=== PATIENT | female | born 1995 | race African-American/Black ===

== ENCOUNTER 2018-11-08 08:03 | Emergency (ER) | payer SELFPAY ==
[2018-11-08 08:11] VITALS: BP 105/67
--- NOTE | 2018-11-08 08:28 | ER Document Report ---
HPI - HPI Patient complains to provider of: right hand pain Time Seen by Provider: 11/08/18 08:24 Onset: Yesterday Onset/Duration: Sudden, Persistent Quality of pain: Achy Severity: Severe Pain Level: 4 Context: Patient presents emergency department with right hand pain. Reports she punched a car door last night. Reports she punches things when she gets mad. Reports pain with movement. No other complaints such as fever vomiting diarrhea. No past medical history of injury to the hand. Patient is right-hand dominant. Associated Symptoms: None Exacerbated by: Movement Relieved by: Denies Similar symptoms previously: No Recently seen / treated by doctor: No - REPRODUCTIVE Reproductive: DENIES: : Past Medical History - General Information source: Patient Last Menstrual Period: september - Social History Smoking Status: Current Every Day Smoker Cigarette use (# per day): Yes Frequency of alcohol use: None Drug Abuse: Marijuana Family History: Reviewed & Not Pertinent Patient has suicidal ideation: No Patient has homicidal ideation: No - Medical History Medical History: Negative Surgical Hx: Negative - Immunizations Immunizations up to date: Yes Vertical Provider Document - CONSTITUTIONAL Agree With Documented VS: Yes Exam Limitations: No Limitations General Appearance: WD/WN, No Apparent Distress - nontoxic looking - INFECTION CONTROL TRAVEL OUTSIDE OF THE [place] IN LAST 30 DAYS: No - HEENT HEENT: Atraumatic, Normocephalic - NECK Neck: Supple - RESPIRATORY Respiratory: No Respiratory Distress - CARDIOVASCULAR Cardiovascular: Regular Rate - MUSCULOSKELETAL/EXTREMETIES Musculoskeletal/Extremeties: MAEW, FROM, Tender - Patient reports right hand dorsally tender to palpation no obvious deformity no swelling no erythema no warmth full range of motion good cap refill good radial pulse. - NEURO Level of Consciousness: Awake, Alert, Appropriate Motor/Sensory: No Motor Deficit - DERM Integumentary: Warm, Dry Course - Re-evaluation Re-evalutation: 11/08/18 09:22 Hand x-ray negative for acute fracture. Patient was instructed to take Tylenol Motrin for the pain ice hand and avoid punching things. She verbalized understanding all instructions Dictation of this chart was performed using voice recognition software; therefore, there may be some unintended grammatical errors. - Vital Signs Vital signs: Temp Pulse Resp BP Pulse Ox 98.4 F 81 105/67 100 11/08/18 08:09 11/08/18 08:09 11/08/18 08:09 11/08/18 08:09 - Diagnostic Test Radiology reviewed: Image reviewed, Reports reviewed - EXAM DESCRIPTION: HAND RIGHT 3 VIEWS COMPLETED DATE/TIME: 11/08/2018 8:30 am REASON FOR STUDY: punched car door COMPARISON: None. EXAM PARAMETERS: NUMBER OF VIEWS: Three views. TECHNIQUE: AP, lateral and oblique radiographic images acquired of the right hand. LIMITATIONS: None. FINDINGS: MINERALIZATION: Normal. BONES: No acute fracture or dislocation. No worrisome bone lesions. JOINTS: No effusions. SOFT TISSUES: No soft tissue swelling. No foreign body. OTHER: No other significant finding. IMPRESSION: No fracture or dislocation of the right hand. Joint spaces are well preserved. Discharge - Discharge Clinical Impression: Right hand pain Condition: Stable Disposition: HOME, SELF-CARE Instructions: Use of Bwbp-Kxr-Qheixat Ibuprofen ([facility]), Ice & Elevation ([facility]) Additional Instructions: *You have been evaluated for right hand pain Your xray was negative for an acute fracture *Rest/Ice/Elevate *Follow up with orthopedics for continued pain within one week *Take tylenol or motrin as indicated for pain *Return to ED for worsening condition, changes, needs Forms: Return to Work
--- NOTE | 2018-11-08 08:47 | RADIOLOGY REPORT (SQ) ---
EXAM DESCRIPTION: HAND RIGHT 3 VIEWS COMPLETED DATE/TIME: 11/08/2018 8:30 am REASON FOR STUDY: punched car door COMPARISON: None. EXAM PARAMETERS: NUMBER OF VIEWS: Three views. TECHNIQUE: AP, lateral and oblique radiographic images acquired of the right hand. LIMITATIONS: None. FINDINGS: MINERALIZATION: Normal. BONES: No acute fracture or dislocation. No worrisome bone lesions. JOINTS: No effusions. SOFT TISSUES: No soft tissue swelling. No foreign body. OTHER: No other significant finding. IMPRESSION: No fracture or dislocation of the right hand. Joint spaces are well preserved. TECHNICAL DOCUMENTATION: JOB ID: [id number] [employer]- All Rights Reserved Reading location - IP/workstation name: [email or web address]
== END 2018-11-08 09:13 | disposition home or self-care (01) ==
LOC: ER 08:03
DX: M79.641 Pain in right hand (principal); W22.8XXA Striking against or struck by other objects, initial encounter; F17.210 Nicotine dependence, cigarettes, uncomplicated
CPT/HCPCS: 99283

== ENCOUNTER 2019-06-12 09:48 | Emergency (ER) | payer SELFPAY ==
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
--- NOTE | 2019-06-12 11:13 | RADIOLOGY REPORT (SQ) ---
EXAM DESCRIPTION: CT HEAD WITHOUT COMPLETED DATE/TIME: 06/12/2019 11:04 am REASON FOR STUDY: trauma COMPARISON: None. TECHNIQUE: Axial images acquired through the brain without intravenous contrast. Images reviewed wi th bone, brain and subdural windows. Additional sagittal and coronal reconstructions were generated. Images stored on PACS. All CT scanners at this facility use dose modulation, iterative reconstruction, and/or weight based d osing when appropriate to reduce radiation dose to as low as reasonably achievable (ALARA). [facility]: Dose Right [facility]: CareDose [facility]: Dose Right [facility]: Teradose 4D [facility]: CabbyGo RADIATION DOSE: CT Rad equipment meets quality standard of care and radiation dose reduction techniq ues were employed. CTDIvol: 53.2 mGy. DLP: 911 mGy-cm. mGy. LIMITATIONS: None. FINDINGS: VENTRICLES: Normal size and contour. CEREBRUM: No masses. No hemorrhage. No midline shift. No evidence for acute infarction. Normal gra y/white matter differentiation. No areas of low density in the white matter. CEREBELLUM: No masses. No hemorrhage. No alteration of density. No evidence for acute infarction. EXTRAAXIAL SPACES: No fluid collections. No masses. ORBITS AND GLOBE: No intra- or extraconal masses. Normal contour of globe without masses. CALVARIUM: No fracture. PARANASAL SINUSES: No fluid or mucosal thickening. SOFT TISSUES: No mass or hematoma. OTHER: No other significant finding. IMPRESSION: NORMAL BRAIN CT WITHOUT CONTRAST. EVIDENCE OF ACUTE STROKE: NO. COMMENT: Quality ID # [id number]: Final reports with documentation of one or more dose reduction techniques (e.g., Automated exposure control, adjustment of the mA and/or kV according to patient size, use of iterative reconstruction technique) TECHNICAL DOCUMENTATION: JOB ID: [id number] [employer]- All Rights Reserved Reading location - IP/workstation name: [email or web address]
[2019-06-12 11:28] VITALS: BP 105/53
== END 2019-06-12 11:30 | disposition home or self-care (01) ==
LOC: ER 09:48
DX: S09.90XA Unspecified injury of head, initial encounter (principal); R51 Headache; R22.0 Localized swelling, mass and lump, head; Y04.0XXA Assault by unarmed brawl or fight, initial encounter; F17.200 Nicotine dependence, unspecified, uncomplicated
CPT/HCPCS: 70450; 99283

== ENCOUNTER 2019-10-23 10:55 | Emergency (ER) | payer SELFPAY ==
[2019-10-23 13:32] LABS: AMORPHOUS SEDIMENT,URINE TRACE /HPF; APPEARANCE,URINE CLOUDY; BILIRUBIN,URINE NEGATIVE (NEGATIVE); COLOR,URINE YELLOW; GLUCOSE, URINE NEGATIVE (NEGATIVE); KETONES,URINE 20 mg/dL (NEGATIVE); LEUKOCYTE ESTERASE,URINE NEGATIVE (NEGATIVE); NITRITE,URINE NEGATIVE (NEGATIVE); PROTEIN,URINE NEGATIVE (NEGATIVE); URINE SPECIFIC GRAVITY 1.012; UROBILINOGEN,URINE NEGATIVE mg/dL (<2.0)
[2019-10-23 13:48] LABS: ABSOLUTE EOSINOPHILS # (AUTO) 0.1 10^3/uL (0.0-0.6); ABSOLUTE LYMPHOCYTES (AUTO) 1.4 10^3/uL (0.5-4.7); ABSOLUTE MONOCYTES (AUTO) 0.4 10^3/uL (0.1-1.4); ABSOLUTE NEUT (AUTO) 2.2 10^3/uL (1.7-8.2); BASOPHILS % (AUTO) 0.6 % (0-2); EOSINOPHILS % (AUTO) 2.5 % (0-6); HEMATOCRIT 36.2 % (36.0-47.0); HEMOGLOBIN 12.1 g/dL (12.0-15.5); LYMPHOCYTES % (AUTO) 32.9 % (13-45); MEAN CORPUSCULAR HEMOGLOBIN 31.6 pg (27.0-33.4); MEAN CORPUSCULAR HGB CONC 33.4 g/dL (32.0-36.0); MEAN CORPUSCULAR VOLUME 94 fl (80-97); PLATELET COUNT 194 10^3/uL (150-450); RED BLOOD COUNT 3.83 10^6/uL (3.72-5.28); RED CELL DISTRIBUTION WIDTH 16.5 % (11.5-14.0); TOTAL CELLS COUNTED % (AUTO) 100 %; WHITE BLOOD COUNT 4.1 10^3/uL (4.0-10.5)
[2019-10-23] MEDS ORDERED: ONDANSETRON HCL INJ/PF 4 MG/2 ML SDV IV ONE (13:57)
[2019-10-23] MEDS ORDERED: RINGERS SOLUTION,LACTATED 1,000 ML IV ONE (13:57)
--- NOTE | 2019-10-23 13:58 | ER Document Report ---
ED GI/ - General Chief Complaint: Nausea Stated Complaint: COUGH Time Seen by Provider: 10/23/19 13:16 Mode of Arrival: Ambulatory Information source: Patient Notes: 23-year-old female past medical history significant for depression and anxiety presents the emergency room complaining of nausea with vomiting that started last night. She denies abdominal pain. She denies any fevers. Also complains of a cough for the past week. Not taking any medications for her symptoms. No ill contacts. No recent travel. No COVID-19 exposure. States has not vomited today. No recent antibiotics. No bad food she can think of. TRAVEL OUTSIDE OF THE [place] IN LAST 30 DAYS: No - Related Data Allergies/Adverse Reactions: shrimp Allergy (Uncoded 11/08/18 08:05) Past Medical History - General Information source: Patient - Social History Smoking Status: Current Every Day Smoker Chew tobacco use (# tins/day): No Frequency of alcohol use: Occasional Drug Abuse: None, Other - Ecstasy Family History: Reviewed & Not Pertinent Patient has homicidal ideation: No Renal/ Medical History: Denies: Hx Peritoneal Dialysis - Immunizations Immunizations up to date: Yes Review of Systems - Review of Systems Constitutional: No symptoms reported Cardiovascular: No symptoms reported Respiratory: No symptoms reported Gastrointestinal: Nausea, Vomiting. denies: Diarrhea, Constipation Genitourinary: No symptoms reported Musculoskeletal: No symptoms reported Skin: No symptoms reported Neurological/Psychological: No symptoms reported -: Yes All other systems reviewed and negative Physical Exam - Vital signs Vitals: Temp 98.4 F 10/23/19 10:56 - Notes Notes: VITAL SIGNS: Within normal limits. GENERAL: Mild acute distress, non-toxic appearance. HEAD: Normal with no signs of head trauma. EYES: PERRLA, EOMI, conjunctiva normal, no discharge. EARS: Hearing grossly intact. NOSE: Normal. THROAT: Oropharynx is normal. NECK: Normal range of motion, no tenderness, supple, no lymphadenopathy, No adenopathy, no JVD. CHEST: Clear breath sounds bilaterally. No wheezes, rales, or rhonchi. CARDIAC: Regular rate and rhythm. S1 and S2, without murmurs, gallops, or rubs. VASCULAR: No Edema. Peripheral pulses normal and equal in all extremities. ABDOMEN: Normal and soft with no tenderness, no masses or pulsatile masses. GASTROINTESTINAL: Bowel sounds normal GENITOURINARY: Normal, No tenderness LYMPATHTIC: No lymphadenopathy noted. MUSCULOSKELETAL: Good range of motion of all major joints. Extremities without clubbing, cyanosis or edema. NEUROLOGICAL: Alert and oriented x 3. No focal sensory or strength deficits. Speech normal. Follows commands appropriately. PSYCHIATRIC: Normal Affect, judgement and mood. SKIN: Normal appearance with no rashes or lesions. Course - Re-evaluation Re-evalutation: 10/23/19 15:30 Patient is resting comfortably she is afebrile, she is nontoxic-appearing, she is able to tolerate p.o. food and fluids without difficulty. Reviewed all test results with patient. Counseled on viral illness. [place] diet for the next 24 hours. Zofran as needed for nausea. Outpatient follow-up with a primary care physician if not improving in 2 to 3 days. On-call physician was provided. Patient was given strict return to the emergency room guidelines. Return for any new or worsening symptoms. All questions were answered. Patient verbalized understanding and agrees with plan of care. - Vital Signs Vital signs: Temp Pulse Resp BP Pulse Ox 98.4 F 72 12 114/75 10/23/19 11:13 10/23/19 11:13 10/23/19 11:13 10/23/19 11:13 - Laboratory Result Diagrams: 10/23/19 13:27 10/23/19 13:27 Laboratory results interpreted by me: 10/23/19 10/23/19 10/23/19 13:09 13:27 13:27 RDW 16.5 H Sodium 136.4 L Chloride 109 H Anion Gap 0 L BUN 6 L Creatinine 0.51 L Calcium 11.4 H Urine Ketones 20 H Discharge - Discharge Clinical Impression: Nausea & vomiting Qualifiers: Vomiting type: unspecified Vomiting Intractability: non-intractable Qualified Code(s): R11.2 - Nausea with vomiting, unspecified Condition: Stable Disposition: HOME, SELF-CARE Instructions: Antinausea Medication ([facility]), Vomiting ([facility]) Additional Instructions: You have been seen in the Emergency Department (ED) today for nausea and vomi ting. Your work up today has not shown a clear cause for your symptoms. You have been prescribed Zofran; please use as prescribed as needed for your nausea. Follow up with a primary care doctor as soon as possible regarding today's emergent visit and your symptoms of nausea. Return to the Emergency Department (ED) if you develop abdominal pain, bloody vomiting, bloody diarrhea, if you are unable to tolerate fluids due to vomiting, or if you develop other symptoms that concern you. Prescriptions: Ondansetron [Zofran Odt 4 mg Tablet] 1 tab PO Q4H PRN #12 tab.rapdis PRN Reason: For Nausea/Vomiting Forms: Return to Work Referrals: MAYI WU MD [ACTIVE STAFF] - Follow up as needed
[2019-10-23 14:09] LABS: ALKALINE PHOSPHATASE 90 U/L (38-126); ASPARTATE AMINO TRANSFERASE 28 U/L (14-36); BILIRUBIN,TOTAL 0.4 mg/dL (0.2-1.3); BLOOD UREA NITROGEN 6 mg/dL (7-20); CALCIUM 11.4 mg/dL (8.4-10.2); CARBON DIOXIDE 27 mmol/L (22-30); CHLORIDE 109 mmol/L (98-107); GLUCOSE 82 mg/dL (75-110); POTASSIUM 4.8 mmol/L (3.6-5.0)
[2019-10-23 14:17] LABS: ANION GAP 0 (5-19)
--- NOTE | 2019-10-23 14:43 | RADIOLOGY REPORT (SQ) ---
EXAM DESCRIPTION: CHEST SINGLE VIEW IMAGES COMPLETED DATE/TIME: 10/23/2019 2:33 pm REASON FOR STUDY: cough COMPARISON: None. EXAM PARAMETERS: NUMBER OF VIEWS: One view. TECHNIQUE: Single frontal radiographic view of the chest acquired. RADIATION DOSE: NA LIMITATIONS: None. FINDINGS: LUNGS AND PLEURA: No opacities, masses or pneumothorax. No pleural effusion. MEDIASTINUM AND HILAR STRUCTURES: No masses. Contour normal. HEART AND VASCULAR STRUCTURES: Heart normal in size for AP technique. Normal vasculature. BONES: No acute findings. HARDWARE: None in the chest. OTHER: No other significant finding. IMPRESSION: NO ACUTE RADIOGRAPHIC FINDING IN THE CHEST. TECHNICAL DOCUMENTATION: JOB ID: [id number] [employer]- All Rights Reserved Reading location - IP/workstation name: [email or web address]
[2019-10-23 16:01] VITALS: BP 128/63
== END 2019-10-23 16:00 | disposition home or self-care (01) ==
LOC: ER 10:55
DX: R11.2 Nausea with vomiting, unspecified (principal); R05 Cough; F17.200 Nicotine dependence, unspecified, uncomplicated; Z91.013 Allergy to seafood
CPT/HCPCS: 99283; 96361; 96374; 36415; 85025; 81025; 80053; 81001; 71045; J2405; J7120